=== PATIENT | male | born 1960 | race Caucasian/White ===

== ENCOUNTER → 2017-08-31 | Outpatient (CLI) | payer OTHER | LOC: FIMAGING 14:45 | PROVIDERS: ATTEND Orthopaedic Surgery | DX: Z01.818 Encounter for other preprocedural examination (principal); M17.12 Unilateral primary osteoarthritis, left knee ==

== ENCOUNTER 2017-09-27 05:58 | Observation (INO) | payer OTHER ==
[2017-09-27] MEDS ORDERED: TRANEXAMIC ACID 3,000 MG in NS (SYRINGE) 50 ML IRR ONE (06:00)
[2017-09-27] MEDS ORDERED: BUPI/epINEPH/KETOROLAC IU ONE (06:00)
[2017-09-27] MEDS ORDERED: ACETAMINOPHEN 325 MG TAB PO ONE (06:06)
[2017-09-27] MEDS ORDERED: FAMOTIDINE 20 MG TAB PO ONE (06:06)
[2017-09-27] MEDS ORDERED: DEXAMETHASONE 4 MG/ML VIAL IVP ONE (06:06)
[2017-09-27] MEDS ORDERED: ceFAZolin 2 GM/SWFI 2 GM/20 ML SYR IVP ONE (06:06)
[2017-09-27] MEDS ORDERED: LR 1,000 ML IV ONE (06:09)
[2017-09-27] MEDS ORDERED: LIDOCAINE 1% 2 ML INJ ID PRN (06:09)
[2017-09-27] MEDS ORDERED: MIDAZOLAM 2 MG/2 ML VIAL IVP ONE (06:53)
--- NOTE | 2017-09-27 06:55 | PDANEPAE ---
ANE History of Present Illness L TKA for DJD ANE Past Medical History - Cardiovascular History Hx Hypertension: No Hx Arrhythmias: No Hx Chest Pain: No Hx Coronary Artery / Peripheral Vascular Disease: No Hx CHF / Valvular Disease: No Hx Palpitations: No - Pulmonary History Hx COPD: No Hx Asthma/Reactive Airway Disease: No Hx Recent Upper Respiratory Infection: No Hx Oxygen in Use at Home: No Hx Sleep Apnea: No Sleep Apnea Screening Result - Last Documented: Positive - Neurologic History Hx Cerebrovascular Accident: No Hx Seizures: No Hx Dementia: No - Endocrine History Hx Diabetes: No - Renal History Hx Renal Disorders: No - Liver History Hx Hepatic Disorders: No - Neurological & Psychiatric Hx Hx Neurological and Psychiatric Disorders: Yes Neurological / Psychiatric History Comment: ANXIETY W/TRAVEL - LORAZEPAM - Cancer History Hx Cancer: No - Congenital Disorder History Hx Congenital Disorders: No - GI History Hx Gastrointestinal Disorders: No - Other Health History Other Health History: COSTOCHONDRITIS ONCE IN THE PAST - Chronic Pain History Chronic Pain: No - Surgical History Prior Surgeries: HERNIA X2. L KNEE SCOPE ANE Review of Systems Review of Systems: - Exercise capacity METS (RN): 6 METS ANE Patient History - Allergies Allergies/Adverse Reactions: No Known Allergies Allergy (Verified 09/27/17 06:28) - Home Medications Home medications: home medication list seen and reviewed Home Medications: Herbals/Supplements -Info Only 1 ea PO DAILY 08/28/17 [Last Taken 09/13/17] LORazepam [Ativan (*)] 0.5 mg PO DAILY PRN 08/28/17 [Last Taken 09/03/17] [place]-3 Fatty Acids [Fish Oil 1000 mg (*)] 1,000 mg PO DAILY 08/28/17 [Last Taken 09/13/17] clonazePAM [klonoPIN (*)] 0.5 mg PO HS 08/28/17 [Last Taken 09/25/17] Ibuprofen 08/30/17 [Last Taken 09/20/17] - NPO status NPO Since - Liquids (Date): 09/27/17 NPO Since - Liquids (Time): 05:45 NPO Since - Solids (Date): 09/26/17 NPO Since - Solids (Time): 22:00 - Anes Hx Anes Hx: no prior problems - Smoking Hx Smoking Status: Former smoker - Alcohol Use Alcohol Use: None - Family Anes Hx Family Anes Hx: none Family Hx Anesthesia Complications: MOM SLOW TO AWAKEN ANE Labs/Vital Signs - Vital Signs Blood Pressure: 124/80 Heart Rate: 60 Respiratory Rate: 16 O2 Sat (%): 99 Height: 187.96 cm Weight: 78.018 kg ANE Physical Exam - Airway Neck exam: FROM Mallampati Score: Class 1 Mouth exam: normal dental/mouth exam - Pulmonary Pulmonary: no respiratory distress - Cardiovascular Cardiovascular: regular rate and rhythym - ASA Status ASA Status: I ANE Anesthesia Plan Anesthesia Plan: spinal Regional Anesthesia: adductor canal FNB
[2017-09-27] MEDS ORDERED: TRANEXAMIC ACID 3,000 MG/50 ML BAG IRR ONE (06:57)
--- NOTE | 2017-09-27 07:06 | PDHPUP ---
History & Physical Update H&P update statement: This history and physical update is based on an assessment of the patient which was completed after admission or registration (within 24 hours), but prior to the surgery/procedure. H&P update: H&P reviewed & patient examined, no change in patient's condition since H&P completed
[2017-09-27] MEDS ORDERED: fentaNYL 100 MCG/2 ML INJ ONE (07:15)
[2017-09-27] MEDS ORDERED: PROPOFOL/EMULSION 500 MG/50 ML BOTTLE IV ONE (07:15)
[2017-09-27] MEDS ORDERED: TEMAZEPAM 15 MG CAP PO PRN (07:23)
[2017-09-27] MEDS ORDERED: ONDANSETRON 4 MG/2 ML VIAL IVP PRN ×2 (07:23→08:20)
[2017-09-27] MEDS ORDERED: PROMETHAZINE HCL 25 MG/ML INJ IVP PRN ×2 (07:23→08:20)
[2017-09-27] MEDS ORDERED: BISACODYL 10 MG SUPP PR PRN (07:23)
[2017-09-27] MEDS ORDERED: LACTULOSE 20 GM/30 ML UDCUP PO PRN (07:23)
[2017-09-27] MEDS ORDERED: DIPHENOXYLATE/ATROPINE LOMOTIL 1 TAB PO PRN (07:23)
[2017-09-27] MEDS ORDERED: MAGNESIUM HYDROXIDE 30 ML UDCUP PO PRN (07:23)
[2017-09-27] MEDS ORDERED: PROMETHAZINE HCL 25 MG SUPPR PR PRN (07:23)
[2017-09-27] MEDS ORDERED: METOCLOPRAMIDE 10 MG/2 ML VIAL IVP PRN ×2 (07:23→08:20)
[2017-09-27] MEDS ORDERED: diphenhydrAMINE 25 MG CAP PO PRN (07:23)
[2017-09-27] MEDS ORDERED: ONDANSETRON DISINTEGRATING 4 MG TAB PO PRN (07:23)
[2017-09-27] MEDS ORDERED: POLYETHYLENE GLYCOL 3350 17 GM PKT PO PRN (07:23)
[2017-09-27] MEDS ORDERED: CYCLOBENZAPRINE 10 MG TAB PO PRN (07:23)
[2017-09-27] MEDS ORDERED: LORazepam 0.5 MG TAB PO PRN (07:24)
[2017-09-27] MEDS ORDERED: LR 1,000 ML IV SCH (07:30)
[2017-09-27] MEDS ORDERED: PROPOFOL 200 MG/20 ML VIAL ONE ×2 (08:18)
[2017-09-27] MEDS ORDERED: ACETAMINOPHEN 500 MG TAB PO PRN (08:20)
[2017-09-27] MEDS ORDERED: MEPERIDINE 25 MG/ML SYR IVP PRN (08:20)
[2017-09-27] MEDS ORDERED: fentaNYL 100 MCG/2 ML INJ IVP PRN (08:20)
[2017-09-27] MEDS ORDERED: ALBUTEROL 3 ML DEYVIAL IH PRN (08:20)
[2017-09-27] MEDS ORDERED: oxyCODONE IR 5 MG TAB PO PRN (08:20)
[2017-09-27] MEDS ORDERED: LR 500 ML IV PRN (08:20)
[2017-09-27] MEDS ORDERED: PHENYLEPHRINE HCL 100 MCG/ML SYR IVP PRN (08:20)
[2017-09-27] MEDS ORDERED: LABETALOL HCL 5 MG/ML 20 ML MDV IVP PRN (08:20)
[2017-09-27] MEDS ORDERED: NALOXONE HCL 0.4 MG/ML INJ IVP PRN (08:20)
[2017-09-27] MEDS ORDERED: HYDROCODONE/APAP 5/325 TAB PO PRN (08:20)
[2017-09-27] MEDS ORDERED: DEXAMETHASONE 4 MG/ML VIAL IVP PRN (08:20)
--- NOTE | 2017-09-27 08:42 | POSTOPPROG ---
Post Op Note Date of Operation: 09/27/17 Surgeon: Chapin Oquendo Baseboard Heating Installer: flex oquendo Anesthesiologist: dr. cottrell Anesthesia: Spinal, Other (Specify) (adductor canal block) Pre-op Diagnosis: left knee OA Post-op Diagnosis: same Indication: left knee pain Procedure: L TKA robot assisted Findings: severe knee OA Inf/Abcess present in the surg proc area at time of surgery?: No EBL: 50-100
--- NOTE | 2017-09-27 09:36 | POSTANESTH ---
Post Anesthetic Evaluation Cardiovascular Status: Normal, Stable Respiratory Status: Normal, Stable Level of Consciousness/Mental Status: Can Participate in Eval Pain Control: Adequate, Prn Tx Ordered Nausea/Vomiting Control: Adequate, Prn Tx Ordered Complications Possibly Related to Anesthesia: None Noted
[2017-09-27] MEDS: ACETAMINOPHEN 325 MG TAB PO SCH ×2 (11:22→16:50)
[2017-09-27] MEDS: SENNOSIDES/DOCUSATE SODIUM TAB PO SCH ×2 (11:22→20:38)
[2017-09-27] MEDS ORDERED: ceFAZolin 2 GM/DEXTROSE 100 ML IV SCH (14:00)
[2017-09-27] MEDS: ceFAZolin 2 GM/SWFI 2 GM/20 ML SYR IVP SCH ×2 (14:50→22:03)
[2017-09-27] MEDS: oxyCODONE IR 5 MG TAB PO PRN (16:49)
[2017-09-27] MEDS: FAMOTIDINE 20 MG TAB PO SCH (20:38)
[2017-09-27] MEDS: ASPIRIN 81 MG CHEWABLE TAB PO SCH (20:38)
[2017-09-27] MEDS ORDERED: clonazePAM 0.5 MG TAB PO SCH (21:00)
[2017-09-28] MEDS: ACETAMINOPHEN 325 MG TAB PO SCH ×3 (00:05→12:57)
[2017-09-28] MEDS: oxyCODONE IR 5 MG TAB PO PRN ×2 (00:58→09:32)
--- NOTE | 2017-09-28 09:10 | SOAPPROG ---
SOAP Progress Note Assessment/Plan: Assessment: Patient is doing well POD 1 s/p L TKA Pain management: pain is well controlled on oral pain meds. VTE ppx: recommend aspirin 81 mg BID for 4 weeks, cont LEIGHTON and SCDs D/c planning: d/c to home today pending release from PT postop urinary retention: straight cath'd yesterday, resolved today Plan: 09/28/17 09:09 Subjective: Andres is doing well, denies SOB, chest pain and N/V. Objective: Vital Signs Temp Pulse Resp BP Pulse Ox 36.9 C 62 16 104/70 95 09/28/17 07:50 09/28/17 07:50 09/28/17 07:50 09/28/17 07:50 09/28/17 07:50 Laboratory Results 09/28/17 04:56 09/27/17 09/28/17 09/29/17 05:59 05:59 05:59 Intake Total 1714 Output Total 2500 450 Balance -786 -450 LLE; Incision dressing is clean and dry, NVI, +pf/df ICD10 Worksheet Patient Problems: Problems Problem Status Onset Primary localized osteoarthritis of left knee Acute
[2017-09-28] MEDS: FAMOTIDINE 20 MG TAB PO SCH (09:30)
[2017-09-28] MEDS: ASPIRIN 81 MG CHEWABLE TAB PO SCH (09:31)
[2017-09-28] MEDS: SENNOSIDES/DOCUSATE SODIUM TAB PO SCH (09:31)
--- NOTE | 2017-09-28 10:04 | GDS ---
[f rep st] DISCHARGE SUMMARY ADMISSION DIAGNOSIS: Left knee osteoarthritis. DISCHARGE DIAGNOSIS: Left knee osteoarthritis. PROCEDURE: Left total knee arthroplasty, robotic-assisted. VTE PROPHYLAXIS: Recommend aspirin twice daily for a month. BRIEF DESCRIPTION OF HOSPITAL STAY: Patient was admitted for an elective joint arthroplasty. The pa violetta tolerated the procedure well and has passed physical therapy. The patient was given appropriat e antibiotic prophylaxis and venous thromboembolism prophylaxis. The patient's pain was well control led on oral pain medication, patient was holding down food, and had urinated. Decision was made to d ischarge the patient. The patient was given post-operative prescriptions pre-operatively. PLAN: Follow up as scheduled Dr. Sotelo's office, October 19 at 10:15. /[id number]/MODL
[2017-09-28 12:43] VITALS: BP 115/75
--- NOTE | 2017-10-18 13:51 | GOP ---
[f rep st] OPERATIVE REPORT DATE OF OPERATION: 09/27/2017 SURGEON: Amirah Sotelo MD WANT AD SUPERVISOR: Kay Sotelo P.A.-C. ANESTHESIA: Spinal. PREOPERATIVE DIAGNOSIS: Left knee osteoarthritis. POSTOPERATIVE DIAGNOSIS: Left knee osteoarthritis. PROCEDURE PERFORMED: Left total knee arthroplasty with computer navigation, robotic-assist. FINDINGS: ESTIMATED BLOOD LOSS: 30 cc. INDICATIONS: The patient is a 57-year-old male with severe and progressive pain and deformity of the left knee unresponsive to conservative care. The risks and benefits of surgical intervention were explained in detail. DESCRIPTION OF PROCEDURE: The patient was brought to the operative room and placed on the table in the supine position. Spinal anesthesia was induced without difficulty. A pneumatic tourniquet was applied about the left proximal thigh, and the leg was prepped and draped in a sterile fashion. The leg anton was applied. After exsanguination by elevation the tourniquet was inflated to 250 mmHg. Incision was made anterior medial from the tibial tuberosity to a point 2 cm proximal to the superior pole of the patella. Medial parapatellar arthrotomy was carried out from the superior pole of the patella and posteriorly in line with the fibers of the Type II VMO. The medial collateral ligament was elevated and the infrapatellar fat pad was resected. The patella was everted and the articular surface was excised. A 35 mm patellar button was placed. Attention was turned first to the distal aspect of the femur. After exposure of the femur, 2 half pins were placed for fixation of the femoral array. In a similar fashion, 2 pins were placed anteromedial on the tibia for fixation of the tibial array. External land marking and registration of the hip center was performed without difficulty. Internal femoral and tibial registration was carried out without difficulty and the femoral and tibial checkpoints were placed and verified for accuracy. Attention was turned to the femur. The foot print for the size 4 femoral component was cut with the saw using the [employer] Ascending robotic system and verified for accuracy against the CT based plan. In a similar fashion, the saw was used to cut the footprint for the size 5 tibial component using the BRITTANY system and verified for accuracy against the CT based plan. The tibial articular surface was excised without difficulty, followed by the intercondylar box cut. The knee was extended and the remnants of the medial and lateral meniscus were excised. The posterior capsule was injected with ropivacaine, epinephrine and Toradol. A size 5 tibial tray was positioned. Trial reduction was then carried out. There was excellent range of motion, alignment, and stability using the 5 x 9 mm polyethylene. All trials were then removed. The joint was thoroughly irrigated and carefully dried. The Press-fit components were implanted. The permanent 9 mm polyethylene was placed without difficulty. The tourniquet was deflated and all bleeders were coagulated. The wound was thoroughly irrigated and closed using interrupted sutures of 2-0 Vicryl for the joint capsule. The subcu was closed with 3-0 Vicryl and the skin with 4-0 Monocryl. Dermabond and Steri-Strips were applied followed by a compressive dressing. The patient was then moved from the operating room to the recovery room in good condition, having tolerated the procedure well. /[id number]/MODL MTDD
== END 2017-09-28 13:55 | disposition home or self-care (01) ==
LOC: F3N 05:58 → EDSTATUS 07:15 → F3N 10:01
PROVIDERS: ADMIT Orthopaedic Surgery; ATTEND Orthopaedic Surgery
PROC: 0SRD0JZ Replacement of Left Knee Joint with Synthetic Substitute, Open Approach (ICD-10-PCS; principal; 2017-09-27 07:15)
PROC: 8E0YXCZ Robotic Assisted Procedure of Lower Extremity (ICD-10-PCS; principal; 2017-09-27 07:15)
DX: M17.12 Unilateral primary osteoarthritis, left knee (principal)
CPT/HCPCS: 27447; 73560; 97110; 97116; 97161; 97165; 97530; G0378; J0171; J0690; J1100; J1885; J2250; J2704; J3010

== ENCOUNTER → 2018-03-12 | Outpatient (CLI) | payer OTHER | LOC: FIMAGING 10:29 | PROVIDERS: ATTEND Orthopaedic Surgery | DX: Z01.818 Encounter for other preprocedural examination (principal); M17.11 Unilateral primary osteoarthritis, right knee ==

== ENCOUNTER 2018-04-04 09:00 | Observation (INO) | payer OTHER ==
[~2018-04-04 09:00] MED LIST: ROPIVACAINE 0.2% 80 MG, EPINEPHrine 0.2 MG, KETOROLAC TROMETHAMINE 30 MG in SYRINGE 0 ML IU ONE; TRANEXAMIC ACID 3,000 MG in NS (SYRINGE) 50 ML IRR ONE; TRANEXAMIC ACID 3,000 MG/50 ML BAG IRR ONE; VANCOMYCIN 1 GM VIAL ONE
[2018-04-04] MEDS ORDERED: DEXAMETHASONE 4 MG/ML VIAL IVP ONE (09:40)
[2018-04-04] MEDS ORDERED: ceFAZolin 2 GM/DEXTROSE 100 ML IV ONE (09:40)
[2018-04-04] MEDS ORDERED: FAMOTIDINE 20 MG TAB PO ONE (09:40)
[2018-04-04] MEDS ORDERED: LR 1,000 ML IV ONE (09:40)
[2018-04-04] MEDS ORDERED: ACETAMINOPHEN 325 MG TAB PO ONE (09:40)
[2018-04-04] MEDS ORDERED: LIDOCAINE 1% 2 ML INJ ID PRN (09:40)
--- NOTE | 2018-04-04 10:21 | PDANEPAE ---
ANE History of Present Illness right knee OA ANE Past Medical History - Cardiovascular History Hx Hypertension: No Hx Arrhythmias: No Hx Chest Pain: No Hx Coronary Artery / Peripheral Vascular Disease: No Hx CHF / Valvular Disease: No Hx Palpitations: No - Pulmonary History Hx COPD: No Hx Asthma/Reactive Airway Disease: No Hx Recent Upper Respiratory Infection: No Hx Oxygen in Use at Home: No Hx Sleep Apnea: No Sleep Apnea Screening Result - Last Documented: Negative - Neurologic History Hx Cerebrovascular Accident: No Hx Seizures: No Hx Dementia: No - Endocrine History Hx Diabetes: No Obesity: no - Renal History Hx Renal Disorders: No - Liver History Hx Hepatic Disorders: No - Neurological & Psychiatric Hx Hx Neurological and Psychiatric Disorders: Yes Neurological / Psychiatric History Comment: ANXIETY W/TRAVEL - LORAZEPAM - Cancer History Hx Cancer: No - Congenital Disorder History Hx Congenital Disorders: No - GI History Hx Gastrointestinal Disorders: No - Other Health History Other Health History: COSTOCHONDRITIS ONCE IN THE PAST. wears glasses - Chronic Pain History Chronic Pain: Yes (right knee) - Surgical History Prior Surgeries: 09/27/17 left TKA with Deepak. HERNIA X2. L KNEE SCOPE ANE Review of Systems Review of systems is: negative Review of Systems: - Exercise capacity METS (RN): 6 METS ANE Patient History - Allergies Allergies/Adverse Reactions: No Known Allergies Allergy (Verified 04/04/18 09:47) - Home Medications Home medications: home medication list seen and reviewed Home Medications: Herbals/Supplements -Info Only 1 ea PO DAILY 08/28/17 [Last Taken 03/21/18] [place]-3 Fatty Acids [Fish Oil 1000 mg (*)] 1,000 mg PO DAILY 08/28/17 [Last Taken 03/21/18] clonazePAM [klonoPIN (*)] 0.5 mg PO HS 08/28/17 [Last Taken 04/03/18 22:00] Ibuprofen [Motrin (*)] 200 mg PO BID PRN 02/22/18 [Last Taken 03/28/18] - NPO status NPO Since - Liquids (Date): 04/04/18 NPO Since - Liquids (Time): 05:00 NPO Since - Solids (Date): 04/03/18 NPO Since - Solids (Time): 20:30 - Anes Hx Anes Hx: no prior problems - Smoking Hx Smoking Status: Former smoker - Family Anes Hx Family Hx Anesthesia Complications: MOM SLOW TO AWAKEN ANE Labs/Vital Signs - Vital Signs Blood Pressure: 114/75 Heart Rate: 63 Respiratory Rate: 16 O2 Sat (%): 98 Height: 187.96 cm Weight: 80.739 kg ANE Physical Exam - Airway Neck exam: FROM Mallampati Score: Class 1 Mouth exam: normal dental/mouth exam - Pulmonary Pulmonary: no respiratory distress - Cardiovascular Cardiovascular: regular rate and rhythym - ASA Status ASA Status: II ANE Anesthesia Plan Anesthesia Plan: spinal Regional Anesthesia: single shot NB, adductor canal FNB Urgent/Emergent Case: Dyan auguste completed preop but documented later for safe timely pt care
[2018-04-04] MEDS ORDERED: MIDAZOLAM 2 MG/2 ML VIAL ONE (10:58)
[2018-04-04] MEDS ORDERED: PROPOFOL/EMULSION 500 MG/50 ML BOTTLE IV ONE (11:01)
[2018-04-04] MEDS ORDERED: ROPIVACAINE HCL 150 MG/30 ML INJ ONE (11:02)
[2018-04-04] MEDS ORDERED: BUPIVACAINE/DEXTROSE 7.5MG/ML 2 ML SPINAL AMP SP ONE (11:02)
[2018-04-04] MEDS ORDERED: LIDOCAINE 2% 5 ML SDV ONE (11:24)
[2018-04-04] MEDS ORDERED: DIPHENOXYLATE/ATROPINE LOMOTIL 1 TAB PO PRN (11:36)
[2018-04-04] MEDS ORDERED: HYDROmorphONE/DILAUDID 2 MG/ML INJ IVP PRN (11:36)
[2018-04-04] MEDS ORDERED: METOCLOPRAMIDE 10 MG/2 ML VIAL IVP PRN (11:36)
[2018-04-04] MEDS ORDERED: LR 500 ML IV PRN (11:36)
[2018-04-04] MEDS ORDERED: NALOXONE HCL 0.4 MG/ML INJ IVP PRN (11:36)
[2018-04-04] MEDS ORDERED: ONDANSETRON DISINTEGRATING 4 MG TAB PO PRN (11:36)
[2018-04-04] MEDS ORDERED: TEMAZEPAM 15 MG CAP PO PRN (11:36)
[2018-04-04] MEDS ORDERED: ONDANSETRON 4 MG/2 ML VIAL IVP PRN ×2 (11:36)
[2018-04-04] MEDS ORDERED: MAGNESIUM HYDROXIDE 30 ML UDCUP PO PRN (11:36)
[2018-04-04] MEDS ORDERED: diphenhydrAMINE 25 MG CAP PO PRN (11:36)
[2018-04-04] MEDS ORDERED: ACETAMINOPHEN 500 MG TAB PO PRN (11:36)
[2018-04-04] MEDS ORDERED: oxyCODONE IR 5 MG TAB PO PRN (11:36)
[2018-04-04] MEDS ORDERED: PROMETHAZINE HCL 25 MG/ML INJ IVP PRN ×2 (11:36)
[2018-04-04] MEDS ORDERED: fentaNYL 100 MCG/2 ML INJ IVP PRN (11:36)
[2018-04-04] MEDS ORDERED: BISACODYL 10 MG SUPP PR PRN (11:36)
[2018-04-04] MEDS ORDERED: CYCLOBENZAPRINE 10 MG TAB PO PRN (11:36)
[2018-04-04] MEDS ORDERED: PROMETHAZINE HCL 25 MG SUPPR PR PRN (11:36)
[2018-04-04] MEDS ORDERED: LACTULOSE 20 GM/30 ML UDCUP PO PRN (11:36)
[2018-04-04] MEDS ORDERED: POLYETHYLENE GLYCOL 3350 17 GM PKT PO PRN (11:36)
[2018-04-04] MEDS ORDERED: HYDROCODONE/APAP 5/325 TAB PO PRN (11:36)
[2018-04-04] MEDS ORDERED: ALBUTEROL 3 ML DEYVIAL IH PRN (11:36)
--- NOTE | 2018-04-04 11:36 | POSTANESTH ---
Post Anesthetic Evaluation Cardiovascular Status: Normal, Stable Respiratory Status: Normal, Stable Level of Consciousness/Mental Status: Can Participate in Eval, Mildly Sleepy, Arousable Pain Control: Adequate, Prn Tx Ordered Nausea/Vomiting Control: Adequate, Prn Tx Ordered Complications Possibly Related to Anesthesia: None Noted
[2018-04-04] MEDS ORDERED: LR 1,000 ML IV SCH (12:00)
[2018-04-04] MEDS ORDERED: PROPOFOL 200 MG/20 ML VIAL ONE (12:01)
--- NOTE | 2018-04-04 12:28 | POSTOPPROG ---
Post Op Note Date of Operation: 04/04/18 Surgeon: Chapin Oquendo Superintendent Factory: flex oquendo Anesthesiologist: Dr. Wilde Anesthesia: Spinal Pre-op Diagnosis: right knee OA Post-op Diagnosis: same Indication: R knee pain Procedure: R med MPL robot assisted Findings: Right knee pain Inf/Abcess present in the surg proc area at time of surgery?: No EBL: 50-100
[2018-04-04] MEDS: ACETAMINOPHEN 325 MG TAB PO SCH ×3 (13:59→23:16)
[2018-04-04] MEDS: oxyCODONE IR 5 MG TAB PO PRN ×3 (14:04→23:15)
[2018-04-04] MEDS: ceFAZolin 2 GM/DEXTROSE 100 ML IV SCH (18:11)
[2018-04-04] MEDS ORDERED: clonazePAM 1 MG TAB PO SCH (21:00)
[2018-04-04] MEDS: FAMOTIDINE 20 MG TAB PO SCH (21:10)
[2018-04-04] MEDS: ASPIRIN 81 MG CHEWABLE TAB PO SCH (21:10)
[2018-04-04] MEDS: SENNOSIDES/DOCUSATE SODIUM TAB PO SCH (21:11)
[2018-04-04] MEDS ORDERED: clonazePAM 0.5 MG TAB PO SCH (21:15)
[2018-04-05] MEDS: oxyCODONE IR 5 MG TAB PO PRN ×2 (04:09→10:45)
[2018-04-05] MEDS: ceFAZolin 2 GM/DEXTROSE 100 ML IV SCH (04:10)
[2018-04-05] MEDS: ACETAMINOPHEN 325 MG TAB PO SCH (05:40)
[2018-04-05 07:43] VITALS: BP 116/67
--- NOTE | 2018-04-05 08:46 | SOAPPROG ---
SOAP Progress Note Assessment/Plan: Assessment: Patient is doing well POD 1 s/p R med MPL Pain management: pain is well controlled on oral pain meds. VTE ppx: recommend aspirin 81 mg BID for 4 weeks, cont LEIGHTON and SCDs D/c planning: d/c to home today pending release from PT postop urinary retention: straight cath'd yesterday, resolved today Plan: 04/05/18 08:44 04/05/18 08:46 Subjective: Andres is doing well today, denies SOb, chest pain and N/V Objective: Vital Signs Temp Pulse Resp BP Pulse Ox 36.7 C 62 17 116/67 98 04/05/18 07:42 04/05/18 07:42 04/05/18 07:42 04/05/18 07:42 04/05/18 07:42 Laboratory Results 04/05/18 04:59 04/04/18 04/05/18 04/06/18 05:59 05:59 05:59 Intake Total 2174 Output Total 1475 Balance 699 RLE: incision dressing is clean and dry, NVi,+pf/df ICD10 Worksheet Patient Problems: Problems Problem Status Onset Primary localized osteoarthritis of right knee Acute Primary localized osteoarthritis of left knee Acute
[2018-04-05] MEDS: SENNOSIDES/DOCUSATE SODIUM TAB PO SCH (08:52)
[2018-04-05] MEDS: ASPIRIN 81 MG CHEWABLE TAB PO SCH (08:52)
[2018-04-05] MEDS: FAMOTIDINE 20 MG TAB PO SCH (08:53)
--- NOTE | 2018-04-05 09:45 | ASMTLACE ---
ANJALIE Length of stay for Answers: 2 days current admission Acuity / Level of Answers: No Care: Did the patient have an inpatient admission? Comorbidities - select Answers: Opioid dependence all that apply / Chronic pain # of Emergency department Answers: 0 visits in the last 6 months Social determinants Answers: Mental health diagnosis (anxiety, depression, pers onality disorders, etc.) Score: 9 Date Signed: 04/05/2018 09:44 AM Electronically Signed By:LOTUS Lewis
--- NOTE | 2018-04-05 11:19 | GOP ---
DATE OF OPERATION: 04/04/2018 SURGEON: Amirah Sotelo MD HIGH SCHOOL SCIENCE TEACHER: CATINA Siddiqui. ANESTHESIA: Spinal. PREOPERATIVE DIAGNOSIS: Right knee osteoarthritis. POSTOPERATIVE DIAGNOSIS: Right knee osteoarthritis. PROCEDURE PERFORMED: Right medial compartment partial knee replacement with computer navigation, robotic assist. FINDINGS: INDICATIONS: This is a 58-year-old male with progressive pain of the right knee unresponsive to conservative care. Risks and benefits of surgical intervention were explained in detail. DESCRIPTION OF PROCEDURE: The patient was brought to the operating room and placed on the table in supine position. Spinal anesthesia was induced without difficulty. A pneumatic tourniquet was applied about the right proximal thigh and the leg was prepped and draped in sterile fashion. Attention was turned first to the distal aspect of the right femur. At 3 cm proximal to the lateral rise of the femur, 2 percutaneous half pins were placed for fixation of the femoral array. In a similar fashion, 2 pins were placed anterolateral on the tibia for fixation of the tibial array. External land marking and registration of the hip center was performed without difficulty. After exsanguination by elevation, the tourniquet was inflated to 250 mmHg. Incision was made from the tibial tuberosity to the superior pole of the patella. Dissection was carried out through the subcutaneous tissue to the deep fascia using Bovie electrocautery for hemostasis. Medial parapatellar arthrotomy was carried out to the superior pole of the patella. The medial collateral ligament was elevated and the infrapatellar fat pad was resected. Internal femoral and tibial registration was carried out without difficulty and the femoral and tibial checkpoints were placed and verified for accuracy. Attention was turned to the femur. The foot print for the size 4 femoral component was cut with the 6 mm bur using the [employer] robotic system and verified for accuracy against the CT based plan. The hole was cut for the femoral post. In a similar fashion, the 6 mm bur was used to cut the foot print for the size 4 tibial component using the BRITTANY system and verified for accuracy against the CT based plan. Attention was turned to the posterior aspect of the knee and remnants of the medial meniscus were excised. The posterior capsule was injected with ropivacaine, epinephrine and Toradol. Trial reduction was carried out and there was excellent range of motion, alignment and stability using the size 4 femoral component and the size 4 tibial component, a 4 x 8 mm polyethylene. All trials were then removed. The joint was thoroughly irrigated and carefully dried. One package of cement and 1 gram of vancomycin were mixed in the vacuum mixer and placed on the fixation surfaces of all components. The components were implanted and all excess cement was thoroughly removed. Implant placement was verified against the CT view plan and found to be excellent. The tourniquet was deflated and all bleeders were coagulated. The wound was thoroughly irrigated and closed using interrupted sutures of 2-0 Vicryl for the joint capsule. The subcu was closed with 3-0 Vicryl and the skin with 4-0 Monocryl. Dermabond and Steri-Strips were applied, followed by a compressive dressing. The patient was then moved from the operating room to the recovery room in good condition, having tolerated the procedure well. CASE CLASSIFICATION: Clean. /[id number]/MODL MTDD
== END 2018-04-05 12:08 | disposition home or self-care (01) ==
LOC: F3E 09:07 → F3N 13:20
PROVIDERS: ADMIT Orthopaedic Surgery; ATTEND Orthopaedic Surgery
PROC: 0SRT0J9 Replacement of Right Knee Joint, Femoral Surface with Synthetic Substitute, Cemented, Open Approach (ICD-10-PCS; principal; 2018-04-04 11:00)
DX: M17.11 Unilateral primary osteoarthritis, right knee (principal)
CPT/HCPCS: 27446; 73560; 97116; 97161; G0378; C1713; J0171; J0690; J1100; J1885; J2250; J2704; J2795; J3370